=== PATIENT | female | born 1990 | race African-American/Black ===

== ENCOUNTER 2016-10-29 13:23 | Emergency (ER) | payer MEDICAID, OTHER ==
[~2016-10-29] VITALS: Ht 165.1 cm; Wt 117.0 kg
[~2016-10-29 13:23] MED LIST: PREN-88 PO
[2016-10-29 15:23] VITALS: BP 119/72
== END 2016-10-29 17:07 | disposition home or self-care (01) ==
LOC: ER 13:24
DX: S92.354A Nondisplaced fracture of fifth metatarsal bone, right foot, initial encounter for closed fracture (principal); F12.10 Cannabis abuse, uncomplicated; Z98.890 Other specified postprocedural states; Z91.010 Allergy to peanuts; X50.1XXA Overexertion from prolonged static or awkward postures, initial encounter; Y93.89 Activity, other specified; Y92.018 Other place in single-family (private) house as the place of occurrence of the external cause
CPT/HCPCS: 29515; 73610; 73630; 99284